=== PATIENT | male | born 1965 | race Caucasian/White ===

== ENCOUNTER → 2018-05-05 | Outpatient (CLI) | payer OTHER ==
--- NOTE | 2018-05-05 22:43 | MR ---
EXAMINATION TYPE: MR shoulder LT wo con DATE OF EXAM: 05/05/2018 COMPARISON: Left shoulder x-ray March 18, 2018 HISTORY: Lt shoulder pain, and chronic pain per order. Injury 2 years ago with pain and difficulty ra ising overhead per patient. TECHNIQUE: Multiplanar, multisequence imaging of the left shoulder is performed without contrast. FINDINGS: Examination is suboptimal due to patient claustrophobia and pain with repeated motion despi te technologist morning patient to hold still. Rotator Cuff: Some increased signal seen in the distal supraspinatus and infraspinatus tendons. In ad dition there is bursal side fluid involving supraspinatus tendon seen best paracoronal image 11 and p arasagittal image 4 with some tearing of the outer supraspinatus fibers anteriorly. Rotator cuff musc le bulk is preserved. Subscapularis tendon is intact. Focal calcification noted near this level on pl ain films less well seen on MRI likely present at articular surface paracoronal image 12. Acromioclavicular Joint: Moderate capsular hypertrophy with mild to moderate narrowing and mild spurr ing is identified. Underlying fat plane is effaced. Distal acromion morphology is unremarkable. Glenohumeral Joint: Small to moderate glenohumeral joint effusion with mild narrowing. No significant spurring. Labrum: The superior labrum is presumed torn with increased degenerative signal paraCoronal image 11. Biceps Tendon: The long head of biceps is in normal location within bicipital groove. Intracapsular p ortion less well-seen but felt intact. Bone marrow signal: No focal abnormal marrow signal is appreciated. Other: No additional significant abnormality is appreciated. IMPRESSION: 1. There is calcific tendinosis distal supraspinatus and infraspinatus tendons with tiny bursal tear of the supraspinatus tendon noted. 2. There is moderate AC joint arthropathy with suggestion of underlying impingement, correlate clinic ally.
== END ==
LOC: RADMRIMAIN 19:41
PROVIDERS: ATTEND Nurse Practitioner Family
DX: M75.82 Other shoulder lesions, left shoulder (principal); M12.812 Other specific arthropathies, not elsewhere classified, left shoulder

== ENCOUNTER 2018-12-10 13:30 | Emergency (ER) | payer OTHER ==
[2018-12-10 13:53] VITALS: RESP 18; TEMP 98.5
[2018-12-10] MEDS ORDERED: NITROGLYCERIN OINT 1 INCH/GM PACKET TOPICAL STA (13:59)
[2018-12-10] MEDS ORDERED: ASPIRIN 81 MG PO STA (13:59)
--- NOTE | 2018-12-10 14:16 | ED ---
General Adult HPI - General Chief complaint: Chest Pain Stated complaint: Chest/arm pain sob Time Seen by Provider: 12/10/18 13:50 Source: patient, RN notes reviewed Mode of arrival: EMS Limitations: no limitations - History of Present Illness Initial comments: This a 53-year-old male who presents emergency Department complaining of chest pain starting about an hour and half prior to arrival. Patient states pain radiated down the left arm. Patient states he also was short of breath. Patient denies any diaphoretic episodes. Patient denies any nausea. Patient states he is a smoker he denies diabetes high blood pressure high cholesterol. Patient also states he has a strong family history of heart disease. Patient states after he got in the ambulance he was given 2 nitroglycerin and he felt much better but he still has a 2 out of 10 pain. Patient did not take any aspirin because she thought taken Tylenol was the same. And he did take a couple Tylenol. Patient denies any recent fever chills. Patient denies being lightheaded or dizzy. Patient denies headache patient denies numbness weakness. Patient denies any abdominal pain patient denies nausea vomiting diarrhea. - Related Data Home Medications Medication Instructions Recorded Confirmed Acetaminophen [Tylenol 8 Hour] 2,600 mg PO ONCE PRN 12/10/18 12/10/18 Aspirin/Acetaminophen/Caffeine 4 tab PO Q6H PRN 12/10/18 12/10/18 [Excedrin Migraine Caplet] Allergies Allergy/AdvReac Type Severity Reaction Status Date / Time No Known Allergies Allergy Verified 12/10/18 14:03 Review of Systems ROS Statement: Those systems with pertinent positive or pertinent negative responses have been documented in the HPI. ROS Other: All systems not noted in ROS Statement are negative. Past Medical History Past Medical History: Asthma, Seizure Disorder History of Any Multi-Drug Resistant Organisms: None Reported Past Surgical History: Orthopedic Surgery Additional Past Surgical History / Comment(s): jaw Past Psychological History: No Psychological Hx Reported Smoking Status: Current every day smoker Past Alcohol Use History: None Reported Past Drug Use History: Marijuana General Exam - General Exam Comments Initial Comments: GENERAL: Patient is well-developed and well-nourished. Patient is nontoxic and well- hydrated and is in mild distress. ENT: Neck is soft and supple. No significant lymphadenopathy is noted. Oropharynx is clear. Moist mucous membranes. Neck has full range of motion without eliciting any pain. EYES: The sclera were anicteric and conjunctiva were pink and moist. Extraocular movements were intact and pupils were equal round and reactive to light. Eyelids were unremarkable. PULMONARY: Unlabored respirations. Good breath sounds bilaterally. No audible rales rhonchi or wheezing was noted. CARDIOVASCULAR: There is a regular rate and rhythm without any murmurs gallops or rubs. ABDOMEN: Soft and nontender with normal bowel sounds. No palpable organomegaly was noted. There is no palpable pulsatile mass. SKIN: Skin is clear with no lesions or rashes and otherwise unremarkable. NEUROLOGIC: Patient is alert and oriented x3. Cranial nerves II through XII are grossly intact. Motor and sensory are also intact. Normal speech, volume and content. Symmetrical smile. MUSCULOSKELETAL: Normal extremities with adequate strength and full range of motion. No lower extremity swelling or edema. No calf tenderness. LYMPHATICS: No significant lymphadenopathy is noted PSYCHIATRIC: Normal psychiatric evaluation. Limitations: no limitations Course Vital Signs 12/10/18 12/10/18 13:49 14:35 Temperature 98.5 F Pulse Rate 69 Pulse Rate [ 82 Product Support Specialist ] Respiratory 18 Rate Blood Pressure 130/80 O2 Sat by Pulse 95 Oximetry Medical Decision Making - Medical Decision Making EKG shows normal sinus rhythm at 73 bpm DE interval is 176 QRS is 90 QT interval 398 QTC is 438 per patient's EKG shows no ST segment elevation or depression. Patient's chest x-ray shows no acute abnormality. I went back in to discuss the results with the patient he was still having 2 out of 10 pain. I indicated the patient though initial labs look normal I strongly suggested that he stay I told him that we'll be detrimental potentially if he went home I told him he could even have a massive heart attack and/or if he leaves the hospital he insisted he wanted to go and would sign out AMA - Lab Data Result diagrams: 12/10/18 13:58 12/10/18 13:58 Lab Results 12/10/18 12/10/18 12/10/18 Range/Units 13:58 13:58 13:58 WBC 10.5 (3.8-10.6) k/uL RBC 4.92 (4.30-5.90) m/uL Hgb 14.1 (13.0-17.5) gm/dL Hct 42.6 (39.0-53.0) % MCV 86.6 (80.0-100.0) fL MCH 28.7 (25.0-35.0) pg MCHC 33.1 (31.0-37.0) g/dL RDW 13.4 (11.5-15.5) % Plt Count 229 (150-450) k/uL Neutrophils % 72 % Lymphocytes % 19 % Monocytes % 5 % Eosinophils % 2 % Basophils % 1 % Neutrophils # 7.5 (1.3-7.7) k/uL Lymphocytes # 2.0 (1.0-4.8) k/uL Monocytes # 0.5 (0-1.0) k/uL Eosinophils # 0.2 (0-0.7) k/uL Basophils # 0.1 (0-0.2) k/uL PT 9.7 (9.0-12.0) sec INR 0.9 (<1.2) APTT 25.2 (22.0-30.0) sec Sodium 140 (137-145) mmol/L Potassium 4.0 (3.5-5.1) mmol/L Chloride 106 (98-107) mmol/L Carbon Dioxide 27 (22-30) mmol/L Anion Gap 7 mmol/L BUN 14 (9-20) mg/dL Creatinine 0.92 (0.66-1.25) mg/dL Est GFR (CKD-EPI)AfAm >90 (>60 ml/min/1.73 sqM) Est GFR (CKD-EPI)NonAf >90 (>60 ml/min/1.73 sqM) Glucose 97 (74-99) mg/dL Calcium 8.9 (8.4-10.2) mg/dL Magnesium 1.9 (1.6-2.3) mg/dL Total Bilirubin 0.2 (0.2-1.3) mg/dL AST 18 (17-59) U/L ALT 22 (21-72) U/L Alkaline Phosphatase 61 (38-126) U/L Troponin I (0.000-0.034) ng/mL Total Protein 7.2 (6.3-8.2) g/dL Albumin 4.3 (3.5-5.0) g/dL 12/10/18 Range/Units 13:58 WBC (3.8-10.6) k/uL RBC (4.30-5.90) m/uL Hgb (13.0-17.5) gm/dL Hct (39.0-53.0) % MCV (80.0-100.0) fL MCH (25.0-35.0) pg MCHC (31.0-37.0) g/dL RDW (11.5-15.5) % Plt Count (150-450) k/uL Neutrophils % % Lymphocytes % % Monocytes % % Eosinophils % % Basophils % % Neutrophils # (1.3-7.7) k/uL Lymphocytes # (1.0-4.8) k/uL Monocytes # (0-1.0) k/uL Eosinophils # (0-0.7) k/uL Basophils # (0-0.2) k/uL PT (9.0-12.0) sec INR (<1.2) APTT (22.0-30.0) sec Sodium (137-145) mmol/L Potassium (3.5-5.1) mmol/L Chloride (98-107) mmol/L Carbon Dioxide (22-30) mmol/L Anion Gap mmol/L BUN (9-20) mg/dL Creatinine (0.66-1.25) mg/dL Est GFR (CKD-EPI)AfAm (>60 ml/min/1.73 sqM) Est GFR (CKD-EPI)NonAf (>60 ml/min/1.73 sqM) Glucose (74-99) mg/dL Calcium (8.4-10.2) mg/dL Magnesium (1.6-2.3) mg/dL Total Bilirubin (0.2-1.3) mg/dL AST (17-59) U/L ALT (21-72) U/L Alkaline Phosphatase (38-126) U/L Troponin I <0.012 (0.000-0.034) ng/mL Total Protein (6.3-8.2) g/dL Albumin (3.5-5.0) g/dL Disposition Clinical Impression: Unstable angina pectoris Disposition: Left Against Medical Advice Referrals: Ara Matias MD [Primary Care Provider] - 1-2 days Time of Disposition: 15:12
[2018-12-10 14:18] LABS: Basophils # (A) 0.1 k/uL (0-0.2); Basophils % (A) 1 %; Eosinophils # (A) 0.2 k/uL (0-0.7); Eosinophils % (A) 2 %; HCT 42.6 % (39.0-53.0); HGB 14.1 gm/dL (13.0-17.5); Lymphocytes % (A) 19 %; MCH 28.7 pg (25.0-35.0); MCHC 33.1 g/dL (31.0-37.0); MCV 86.6 fL (80.0-100.0); Mean Platelet Volume 6.1; Monocytes # (A) 0.5 k/uL (0-1.0); Monocytes % (A) 5 %; Neutrophils # (A) 7.5 k/uL (1.3-7.7); Neutrophils % (A) 72 %; Platelet Count 229 k/uL (150-450); RBC 4.92 m/uL (4.30-5.90); RDW 13.4 % (11.5-15.5); WBC 10.5 k/uL (3.8-10.6)
[2018-12-10 14:29] LABS: ALT 22 U/L (21-72); AST 18 U/L (17-59); African American GFR (CKD) >90 (>60 ml/min/1.73 sqM); Albumin 4.3 g/dL (3.5-5.0); Alkaline Phosphatase 61 U/L (38-126); Anion Gap 7 mmol/L; Blood Urea Nitrogen 14 mg/dL (9-20); Calcium 8.9 mg/dL (8.4-10.2); Carbon Dioxide 27 mmol/L (22-30); Chloride 106 mmol/L (98-107); Glucose 97 mg/dL (74-99); Magnesium 1.9 mg/dL (1.6-2.3); Sodium 140 mmol/L (137-145); Total Bilirubin 0.2 mg/dL (0.2-1.3); Total Protein 7.2 g/dL (6.3-8.2)
[2018-12-10 14:32] LABS: INR 0.9 (<1.2); Partial Thromboplastin Time 25.2 sec (22.0-30.0); Prothrombin Time 9.7 sec (9.0-12.0)
--- NOTE | 2018-12-10 14:42 | XR ---
EXAMINATION TYPE: XR chest 2V DATE OF EXAM: 12/10/2018 COMPARISON: Chest x-ray April 06, 2015. HISTORY: Chest pain into left arm and shortness of breath. TECHNIQUE: Frontal and lateral views of the chest are obtained. FINDINGS: Overlying EKG leads are seen. There is chronic parenchymal change right lung base without suspicious new focal air space opacity, pleural effusion, or pneumothorax seen. The cardiac silhouet te size is upper limits of normal with atherosclerotic change in aortic knob. The osseous structure s are intact. IMPRESSION: No new acute pulmonary process.
[2018-12-10 15:39] VITALS: BP 136/76; PULSE 78
== END 2018-12-10 15:36 | disposition left against medical advice (07) ==
LOC: EC 13:30
DX: I20.0 Unstable angina (principal); F17.200 Nicotine dependence, unspecified, uncomplicated; Z82.49 Family history of ischemic heart disease and other diseases of the circulatory system; Z53.20 Procedure and treatment not carried out because of patient's decision for unspecified reasons
CPT/HCPCS: 36415; 71046; 80053; 83735; 84484; 85025; 85610; 85730; 93005; 99285

== ENCOUNTER → 2018-12-21 | Outpatient (CLI) | payer OTHER ==
--- NOTE | 2018-12-21 15:26 | XR ---
EXAMINATION TYPE: XR hand complete RT DATE OF EXAM: 12/21/2018 COMPARISON: NONE HISTORY: 53 year-old male right hand pain, contusion and swelling TECHNIQUE: 3 views FINDINGS: Scattered osteoarthritic spurring, greatest at the first MCP joint. Some dorsal sided soft tissue swe lling at the level of the knuckles. There is some curvilinear lucency at the level of the second meta tarsal head which appears to represent projection artifact when correlating with the oblique view. Ti ny ossicle adjacent to the ulnar styloid process. IMPRESSION: Curvilinear lucency at the level of the second metatarsal head suspected to represent projection natalia fact when correlating with the oblique view. However, if there is point tenderness in this location, subtle nondisplaced fracture is difficult to exclude. Clinical correlation recommended. Osteoporotic change particularly at the first MCP joint.
== END | disposition home or self-care (01) ==
LOC: RADXRMAIN 14:44
PROVIDERS: ATTEND Emergency Medicine
DX: M81.0 Age-related osteoporosis without current pathological fracture (principal)

== ENCOUNTER 2019-06-05 18:41 | Emergency (ER) | payer OTHER ==
[2019-06-05 18:49] VITALS: BP 140/90; PULSE 95; RESP 18; TEMP 98.4
[2019-06-05] MEDS ORDERED: MORPHINE SULFATE 4 MG/ML SYRINGE IM STA (19:18)
--- NOTE | 2019-06-05 19:35 | ED ---
General Adult HPI - General Chief complaint: Extremity Problem,Nontraumatic Stated complaint: Dislocated shoulder Time Seen by Provider: 06/05/19 18:57 Source: patient, RN notes reviewed, old records reviewed Mode of arrival: ambulatory Limitations: no limitations - History of Present Illness Initial comments: 53-year-old male patient presents to ED for chief complaint of chronic right shoulder pain. Patient reports that approximately 1.5 months ago suffered a shoulder dislocation. Since then he states he has had chronic pain in the posterior aspect of his right shoulder. States that the pain is worse with range of motion. Denies any other areas of pain. States that he was supposed to have a MRI scheduled has been following with primary care provider and orthopedics. However was canceled due to coronavirus. Denies any other complaints. Systemic: Pt denies fatigue, fever/chills, rash. Pt denies weakness, night sweats, weight loss. Neuro: Pt denies headache, visual disturbances, syncope or pre-syncope. HEENT: Pt denies ocular discharge or irritation, otalgia, rhinorrhea, pharyngitis or notable lymphadenopathy. Cardiopulmonary: Pt denies chest pain, SOB, heart palpitations, dyspnea on exertion. Abdominal/GI: Pt denies abdominal pain, n/v/d. : Pt denies dysuria, burning w/ urination, frequency/urgency. Denies new onset urinary or bowel incontinence. Neuro: Pt denies new onset weakness. - Related Data Home Medications Medication Instructions Recorded Confirmed Acetaminophen [Tylenol 8 Hour] 2,600 mg PO ONCE PRN 12/10/18 12/10/18 Aspirin/Acetaminophen/Caffeine 4 tab PO Q6H PRN 12/10/18 12/10/18 [Excedrin Migraine Caplet] Previous Rx's Medication Instructions Recorded Cyclobenzaprine [Flexeril] 1 tab PO TID #15 tablet 06/05/19 Allergies Allergy/AdvReac Type Severity Reaction Status Date / Time No Known Allergies Allergy Verified 06/05/19 18:43 Review of Systems ROS Statement: Those systems with pertinent positive or pertinent negative responses have been documented in the HPI. ROS Other: All systems not noted in ROS Statement are negative. Past Medical History Past Medical History: Asthma, Seizure Disorder History of Any Multi-Drug Resistant Organisms: None Reported Past Surgical History: Orthopedic Surgery Additional Past Surgical History / Comment(s): jaw Past Psychological History: No Psychological Hx Reported Smoking Status: Current every day smoker Past Alcohol Use History: None Reported Past Drug Use History: Marijuana General Exam - General Exam Comments Initial Comments: Constitutional: NAD, AOX3, Pt has pleasant affect. HEENT: NC/AT, trachea midline, neck supple, no lymphadenopathy. Posterior pharynx non erythematous, without exudates. External ears appear normal, without discharge. Mucous membranes moist. Eyes PERRLA, EOM intact. There is no scleral icterus. No pallor noted. Cardiopulmonary: RRR, no murmurs, rubs or gallops, no JVD noted. Lungs CTAB in anterior and posterior reed. No peripheral edema. Abdominal exam: Abdomen soft and non-distended. Abdomen non-tender to palpation in all 4 quadrants. Bowel sounds active in LLQ. No hepatosplenomegaly. No ecchymosis Neuro: CN II-XII grossly intact. No nuchal rigidity. No raccon eyes, no ortiz sign, no hemotympanum. No cervical spinal tenderness. MSK: Right posterior shoulder mildly tender to palpation. Active Range of motion is slightly limited secondary to pain. Empty can test is positive. Neurovascularly intact. Limitations: no limitations Course Vital Signs 06/05/19 18:44 Temperature 98.4 F Pulse Rate 95 Respiratory 18 Rate Blood Pressure 140/90 O2 Sat by Pulse 95 Oximetry Medical Decision Making - Medical Decision Making 53-year-old male patient presents to ED for chief complaint of chronic right shoulder pain. Patient reports that approximately 1.5 months ago suffered a shoulder dislocation. Since then he states he has had chronic pain in the posterior aspect of his right shoulder. States that the pain is worse with range of motion. Denies any other areas of pain. States that he was supposed to have a MRI scheduled has been following with primary care provider and orthopedics. However was canceled due to coronavirus. Denies any other complaints. Patient vital signs stable, afebrile. Physical exam displayed: Right posterior shoulder mildly tender to palpation. Active Range of motion is slightly limited secondary to pain. Empty can test is positive. Neurovascularly intact. Plain film of right shoulder displayed no acute process. Patient will be discharged with follow-up with orthopedic consult primary care provider will return here if condition worsens. Discussed with Dr. Inman. Disposition Clinical Impression: Chronic right shoulder pain Disposition: HOME SELF-CARE Condition: Stable Instructions (If sedation given, give patient instructions): Shoulder Pain (ED) Additional Instructions: Follow-up with primary care provider as previously established orthopedic surgeon tomorrow. Return to ER if condition worsens. Is patient prescribed a controlled substance at d/c from ED?: No Referrals: Ara Matias MD [Primary Care Provider] - 1-2 days
--- NOTE | 2019-06-05 19:48 | XR ---
EXAMINATION TYPE: XR shoulder complete RT DATE OF EXAM: 06/05/2019 COMPARISON: NONE HISTORY: Pain TECHNIQUE: Three views are submitted. FINDINGS: The osseous structures are intact. There is no acute fracture or dislocation. Arthropathy of the AC joint. IMPRESSION: 1. No acute process.
[2019-06-05] MEDS ORDERED: ACET/COD 300 MG/30 MG STARTER PACK 6 TAB BTL PO STA (20:22)
[2019-06-05] MEDS ORDERED: CYCLOBENZAPRINE 10MG STARTER 3 TAB BTL PO STA (20:23)
== END 2019-06-05 20:37 | disposition home or self-care (01) ==
LOC: EC 18:41
DX: M25.511 Pain in right shoulder (principal); G89.29 Other chronic pain; F17.200 Nicotine dependence, unspecified, uncomplicated
CPT/HCPCS: 73030; 99284; 96372; J2270

== ENCOUNTER 2019-12-12 12:57 | Emergency (ER) | payer OTHER ==
[2019-12-12] MEDS ORDERED: KETOROLAC 15 MG/ML 1 ML VIAL IM STA (13:19)
--- NOTE | 2019-12-12 14:11 | XR ---
EXAMINATION TYPE: XR tibia fibula RT DATE OF EXAM: 12/12/2019 CLINICAL HISTORY: Mid shaft injury TECHNIQUE: Two views of the right tibia and fibula are obtained. COMPARISON: None. FINDINGS: There is no acute fracture or dislocation seen in the right tibia or fibula. The knee and ankle joints appear within normal limits. The overlying soft tissue appears unremarkable. Normal osse ous mineralization. IMPRESSION: There is no acute fracture or dislocation seen in the right tibia or fibula.
--- NOTE | 2019-12-12 14:34 | ED ---
Lower Extremity Injury HPI - General Chief Complaint: Extremity Injury, Lower Stated Complaint: R leg Injury Time Seen by Provider: 12/12/19 13:10 Source: patient Mode of arrival: ambulatory Limitations: no limitations - History of Present Illness Initial Comments: Patient is a 54-year-old male presenting to emergency Department the chief complaint of leg pain. Patient states he was getting out of his van and injured his right deshpande along the running board of the vehicle. Patient reports there was some bleeding which is since resolved. Patient states his tetanus is up-to-date. Denies any numbness or tingling. States most of his pain is located to the right deshpande. He reports the pain is sharp and exacerbated with palpation or weightbearing. Denies any alleviated factors. - Related Data Allergies Allergy/AdvReac Type Severity Reaction Status Date / Time No Known Allergies Allergy Verified 12/12/19 14:26 Review of Systems ROS Statement: Those systems with pertinent positive or pertinent negative responses have been documented in the HPI. ROS Other: All systems not noted in ROS Statement are negative. Past Medical History Past Medical History: Asthma, Seizure Disorder History of Any Multi-Drug Resistant Organisms: None Reported Past Surgical History: Orthopedic Surgery Additional Past Surgical History / Comment(s): jaw Past Psychological History: No Psychological Hx Reported Past Alcohol Use History: None Reported Past Drug Use History: Marijuana General Exam Limitations: no limitations General appearance: alert, in no apparent distress Head exam: Present: atraumatic, normocephalic, normal inspection Eye exam: Present: normal appearance, PERRL, EOMI Pupils: Present: normal accommodation ENT exam: Present: normal exam, normal oropharynx, mucous membranes moist, TM's normal bilaterally, normal external ear exam Neck exam: Present: normal inspection, full ROM. Absent: tenderness Respiratory exam: Present: normal lung sounds bilaterally. Absent: respiratory distress, wheezes, rales Cardiovascular Exam: Present: regular rate, normal rhythm, normal heart sounds Extremities exam: Present: full ROM, tenderness (Tenderness at the site of abrasion area and small hematoma at the injured site.), normal capillary refill, other (Compartment are soft.). Absent: normal inspection (Small abrasion on the right deshpande. No active bleeding at this time.), pedal edema, joint swelling, calf tenderness Back exam: Present: normal inspection, full ROM. Absent: tenderness, CVA tenderness (R), CVA tenderness (L) Neurological exam: Present: alert, oriented X3 Psychiatric exam: Present: normal affect, normal mood Skin exam: Present: warm, dry, intact, normal color Course Vital Signs 12/12/19 13:04 Temperature 98.0 F Pulse Rate 91 Respiratory 18 Rate Blood Pressure 159/94 O2 Sat by Pulse 97 Oximetry Medical Decision Making - Medical Decision Making patient is a 54-year-old male presenting to the emergency Department with a chief complaint of right leg pain. On physical examination, patient has a with a small abrasion and underlying hematoma. X-ray reveals no acute fracture or dislocations of the tibia or fibula. Patient was given Toradol for symptomatic control. Ice compress was also applied. Patient was advised to rest, ice, compress and elevate. Compartment is soft. Patient is neurovascularly intact. Return parameters were thoroughly discussed the patient is understanding and agreeable. Case discussed physician. Disposition Clinical Impression: Injury of right deshpande, Abrasion Disposition: HOME SELF-CARE Condition: Stable Instructions (If sedation given, give patient instructions): Skin Tear (ED) Additional Instructions: Rest, ice, compress and elevate. Alternate between Tylenol and Motrin for pain control. Return to emergency department if symptoms worsen. Is patient prescribed a controlled substance at d/c from ED?: No Referrals: Ara Matias MD [Primary Care Provider] - 1-2 days Time of Disposition: 14:34
[2019-12-12 15:10] VITALS: BP 151/78; PULSE 89; RESP 16; TEMP 97.8
== END 2019-12-12 15:09 | disposition home or self-care (01) ==
LOC: EC 12:57
DX: S80.11XA Contusion of right lower leg, initial encounter (principal); V58.4XXA Person boarding or alighting a pick-up truck or van injured in noncollision transport accident, initial encounter; Y92.410 Unspecified street and highway as the place of occurrence of the external cause
CPT/HCPCS: 73590; 99283; 96372; J1885

== ENCOUNTER 2022-09-27 11:59 | Emergency (ER) | payer OTHER ==
[2022-09-27] MEDS ORDERED: IPRATROPIUM 0.5 MG/2.5 ML NEBU INHALATION STA (12:34)
[2022-09-27] MEDS ORDERED: ALBUTEROL NEBULIZED 2.5 MG/3 ML INHALATION STA (12:34)
[2022-09-27] MEDS ORDERED: methylPREDNISolone SOD SUCCI 125 MG/2 ML VIAL IV STA (12:34)
--- NOTE | 2022-09-27 12:37 | ED ---
General Adult HPI - General Chief complaint: Shortness of Breath Stated complaint: JUSTINA Time Seen by Provider: 09/27/22 12:20 Source: patient, RN notes reviewed, old records reviewed Mode of arrival: ambulatory Limitations: no limitations - History of Present Illness Initial comments: 56-year-old male presenting with 3 days of cough and dyspnea. His symptoms began after using a pot washer with a cleaning detergent additive. He believes this may have aggravated his breathing. He is a current smoker, smoking approximately one pack of cigarettes daily. He denies fever. Denies central chest pain. Denies lower extremity pain or swelling. No fever. - Related Data Home Medications Medication Instructions Recorded Confirmed Levothyroxine(Unknown Dose) 1 tab PO DAILY 12/12/19 12/12/19 Previous Rx's Medication Instructions Recorded Albuterol Inhaler [Ventolin Hfa 1 - 2 puff INHALATION Q4HR PRN #1 09/27/22 Inhaler] each Amoxic-Pot Clav 875-125Mg 1 tab PO Q12HR 10 Days #20 tab 09/27/22 [Augmentin 875-125] Azithromycin [Zithromax Z Pack] 1 tab PO DIRECTED #6 tab 09/27/22 predniSONE 50 mg PO DAILY #5 tab 09/27/22 Allergies Allergy/AdvReac Type Severity Reaction Status Date / Time No Known Allergies Allergy Verified 09/27/22 12:04 Review of Systems ROS Statement: Those systems with pertinent positive or pertinent negative responses have been documented in the HPI. ROS Other: All systems not noted in ROS Statement are negative. Past Medical History Past Medical History: Asthma, Seizure Disorder Additional Past Medical History / Comment(s): bronchitis History of Any Multi-Drug Resistant Organisms: None Reported Past Surgical History: Orthopedic Surgery Additional Past Surgical History / Comment(s): jaw Past Psychological History: No Psychological Hx Reported Smoking Status: Current every day smoker Past Alcohol Use History: None Reported Past Drug Use History: Marijuana General Exam Limitations: no limitations General appearance: alert, in no apparent distress Head exam: Present: atraumatic, normocephalic Eye exam: Present: normal appearance, PERRL Respiratory exam: Present: respiratory distress, wheezes, decreased breath sounds Cardiovascular Exam: Present: regular rate, normal rhythm GI/Abdominal exam: Present: soft. Absent: distended, tenderness Extremities exam: Present: normal inspection, normal capillary refill. Absent: calf tenderness Neurological exam: Present: alert, oriented X3, CN II-XII intact. Absent: motor sensory deficit Psychiatric exam: Present: normal affect, normal mood Skin exam: Present: warm, dry, intact Course Vital Signs 09/27/22 09/27/22 09/27/22 12:01 13:00 13:10 Temperature 98.2 F Pulse Rate 71 66 66 Respiratory 22 Rate Blood Pressure 128/81 118/73 O2 Sat by Pulse 94 L 98 Oximetry 09/27/22 09/27/22 09/27/22 13:20 13:30 13:41 Temperature Pulse Rate 60 60 64 Respiratory Rate Blood Pressure O2 Sat by Pulse Oximetry 09/27/22 14:00 Temperature Pulse Rate 85 Respiratory Rate Blood Pressure 125/83 O2 Sat by Pulse 92 L Oximetry - Reevaluation(s) Reevaluation #1: 09/27/22 14:34 Patient reevaluated, resting comfortable, states he feels significantly better and is eager for discharge. Medical Decision Making - Medical Decision Making Was pt. sent in by a medical professional or institution (, PA, PROFESSIONAL NURSE, urgent care, hospital, or usp...) When possible be specific @ -No Did you speak to anyone other than the patient for history (EMS, parent, family, police, friend...)? What history was obtained from this source @ -No Did you review nursing and triage notes (agree or disagree)? Why? @ -I reviewed and agree with nursing and triage notes Were old charts reviewed (outside hosp., previous admission, EMS record, old EKG, old radiological studies, urgent care reports/EKG's, usp records)? Report findings @ -No old charts were reviewed Differential Diagnosis (chest pain, altered mental status, abdominal pain women, abdominal pain men, vaginal bleeding, weakness, fever, dyspnea, syncope, headache, dizziness, GI bleed, back pain, seizure, CVA, palpatations, mental health, musculoskeletal)? @ -Differential Dyspnea: Coronary syndrome, arrhythmia, tamponade, asthma, COPD, pulmonary embolism, pneumonia, pneumothorax, pulmonary effusion, anaphylaxis, diabetic ketoacidosis, flailed chest, pulmonary contusion, diaphragmatic rupture, anemia, neuromuscular, this is not meant to be an all-inclusive list. EKG interpreted by me (3pts min.). @ -EKG: Sinus rhythm rate of 68, IL interval 179, QRS duration 101, QTC [address] segment elevation. X-rays interpreted by me (1pt min.). @ -[Chest x-ray showing hyperinflation, no pneumothorax, developing infiltrate right lower lobe CT interpreted by me (1pt min.). @ -None done U/S interpreted by me (1pt. min.). @ -None done What testing was considered but not performed or refused? (CT, X-rays, U/S, labs)? Why? @ -None What meds were considered but not given or refused? Why? @ -None Did you discuss the management of the patient with other professionals (professionals i.e. , PA, PROFESSIONAL NURSE, lab, RT, psych nurse, medical social worker, learning center coordinator, teacher, certified juvenile probation officer, case maker)? Give summary @ -No Was smoking cessation discussed for >3mins.? @ -No Was critical care preformed (if so, how long)? @ -No Were there social determinants of health that impacted care today? How? (Homelessness, low income, unemployed, alcoholism, drug addiction, transportation, low edu. Level, literacy, decrease access to med. care, intermediate, rehab)? @ -No Was there de-escalation of care discussed even if they declined (Discuss DNR or withdrawal of care, Hospice)? DNR status @ -No What co-morbidities impacted this encounter? (DM, HTN, Smoking, COPD, CAD, Can cer, CVA, ARF, Chemo, Hep., AIDS, mental health diagnosis, sleep apnea, morbid obesity)? @ -[COPD Was patient admitted / discharged? Hospital course, mention meds given and route, prescriptions, significant lab abnormalities, going to OR and other pertinent info. @ -[26-year-old male with cough and dyspnea. Patient has a long smoking histo ry. He has wheezing bilaterally with the Mr. entry. No associated central chest pain, no fever. X-ray shows developing infiltrate. Patient is covered with antibiotics, given steroids, albuterol Atrovent. He is reevaluated and states he feels significant better and wants to go home. We'll trial steroids, antibiotics and albuterol. He should return with worsening or changing symptoms. Undiagnosed new problem with uncertain prognosis? @ -No Drug Therapy requiring intensive monitoring for toxicity (Heparin, Nitro, Insulin, Cardizem)? @ -No Were any procedures done? @ -No Diagnosis/symptom? @ COPD, pneumonia Acute, or Chronic, or Acute on Chronic? @ -Acute Uncomplicated (without systemic symptoms) or Complicated (systemic symptoms)? @ Complicated Side effects of treatment? @ -No Exacerbation, Progression, or Severe Exacerbation? @ -No Poses a threat to life or bodily function? How? (Chest pain, [place], [place], pneumonia, PE, COPD, DKA, ARF, appy, cholecystitis, CVA, Diverticulitis, Homicidal, Suicidal, threat to staff... and all critical care pts) @ -Yes, COPD - Lab Data Result diagrams: 09/27/22 12:39 09/27/22 12:39 Lab Results 09/27/22 09/27/22 09/27/22 Range/Units 12:39 12:39 12:39 WBC 7.0 (3.8-10.6) k/uL RBC 4.97 (4.30-5.90) m/uL Hgb 14.5 (13.0-17.5) gm/dL Hct 42.0 (39.0-53.0) % MCV 84.4 (80.0-100.0) fL MCH 29.1 (25.0-35.0) pg MCHC 34.4 (31.0-37.0) g/dL RDW 13.4 (11.5-15.5) % Plt Count 205 (150-450) k/uL MPV 7.7 Neutrophils % 60 % Lymphocytes % 27 % Monocytes % 7 % Eosinophils % 4 % Basophils % 1 % Neutrophils # 4.2 (1.3-7.7) k/uL Lymphocytes # 1.9 (1.0-4.8) k/uL Monocytes # 0.5 (0-1.0) k/uL Eosinophils # 0.3 (0-0.7) k/uL Basophils # 0.1 (0-0.2) k/uL PT 9.5 (9.0-12.0) sec INR 0.9 (<1.2) APTT 24.8 (22.0-30.0) sec Sodium 137 (137-145) mmol/L Potassium 3.7 (3.5-5.1) mmol/L Chloride 106 (98-107) mmol/L Carbon Dioxide 25 (22-30) mmol/L Anion Gap 6 mmol/L BUN 9 (9-20) mg/dL Creatinine 0.99 (0.66-1.25) mg/dL Est GFR (CKD-EPI)AfAm >90 (>60 ml/min/1.73 sqM) Est GFR (CKD-EPI)NonAf 86 (>60 ml/min/1.73 sqM) Glucose 88 (74-99) mg/dL Plasma Lactic Acid Ricco (0.7-2.0) mmol/L Calcium 8.5 (8.4-10.2) mg/dL Magnesium 1.7 (1.6-2.3) mg/dL Total Bilirubin 0.3 (0.2-1.3) mg/dL AST 26 (17-59) U/L ALT 18 (4-49) U/L Alkaline Phosphatase 63 (38-126) U/L Troponin I (0.000-0.034) ng/mL Total Protein 6.5 (6.3-8.2) g/dL Albumin 3.8 (3.5-5.0) g/dL 09/27/22 09/27/22 Range/Units 12:39 12:39 WBC (3.8-10.6) k/uL RBC (4.30-5.90) m/uL Hgb (13.0-17.5) gm/dL Hct (39.0-53.0) % MCV (80.0-100.0) fL MCH (25.0-35.0) pg MCHC (31.0-37.0) g/dL RDW (11.5-15.5) % Plt Count (150-450) k/uL MPV Neutrophils % % Lymphocytes % % Monocytes % % Eosinophils % % Basophils % % Neutrophils # (1.3-7.7) k/uL Lymphocytes # (1.0-4.8) k/uL Monocytes # (0-1.0) k/uL Eosinophils # (0-0.7) k/uL Basophils # (0-0.2) k/uL PT (9.0-12.0) sec INR (<1.2) APTT (22.0-30.0) sec Sodium (137-145) mmol/L Potassium (3.5-5.1) mmol/L Chloride (98-107) mmol/L Carbon Dioxide (22-30) mmol/L Anion Gap mmol/L BUN (9-20) mg/dL Creatinine (0.66-1.25) mg/dL Est GFR (CKD-EPI)AfAm (>60 ml/min/1.73 sqM) Est GFR (CKD-EPI)NonAf (>60 ml/min/1.73 sqM) Glucose (74-99) mg/dL Plasma Lactic Acid Ricco 1.2 (0.7-2.0) mmol/L Calcium (8.4-10.2) mg/dL Magnesium (1.6-2.3) mg/dL Total Bilirubin (0.2-1.3) mg/dL AST (17-59) U/L ALT (4-49) U/L Alkaline Phosphatase (38-126) U/L Troponin I <0.012 (0.000-0.034) ng/mL Total Protein (6.3-8.2) g/dL Albumin (3.5-5.0) g/dL Disposition Clinical Impression: Acute exacerbation of chronic obstructive pulmonary disease, Community acquired pneumonia Disposition: HOME SELF-CARE Condition: Fair Instructions (If sedation given, give patient instructions): COPD (Chronic Obstructive Pulmonary Disease) (ED), Bacterial Pneumonia (ED) Prescriptions: Amoxic-Pot Clav 875-125Mg [Augmentin 875-125] 1 tab PO Q12HR 10 Days #20 tab predniSONE 50 mg PO DAILY #5 tab Albuterol Inhaler [Ventolin Hfa Inhaler] 1 - 2 puff INHALATION Q4HR PRN #1 each PRN Reason: Shortness Of Breath Azithromycin [Zithromax Z Pack] 1 tab PO DIRECTED #6 tab Is patient prescribed a controlled substance at d/c from ED?: No Referrals: None,Stated [Primary Care Provider] - 1-2 days Heike Odell MD [REFERRING] - 1-2 days Time of Disposition: 14:36
[2022-09-27 13:10] LABS: Basophils # (A) 0.1 k/uL (0-0.2); Basophils % (A) 1 %; Eosinophils # (A) 0.3 k/uL (0-0.7); Eosinophils % (A) 4 %; HGB 14.5 gm/dL (13.0-17.5); Lymphocytes # (A) 1.9 k/uL (1.0-4.8); Lymphocytes % (A) 27 %; MCH 29.1 pg (25.0-35.0); MCHC 34.4 g/dL (31.0-37.0); MCV 84.4 fL (80.0-100.0); Mean Platelet Volume 7.7; Monocytes # (A) 0.5 k/uL (0-1.0); Monocytes % (A) 7 %; Neutrophils # (A) 4.2 k/uL (1.3-7.7); Neutrophils % (A) 60 %; Platelet Count 205 k/uL (150-450); RBC 4.97 m/uL (4.30-5.90); RDW 13.4 % (11.5-15.5)
[2022-09-27 13:21] LABS: INR 0.9 (<1.2); Partial Thromboplastin Time 24.8 sec (22.0-30.0); Prothrombin Time 9.5 sec (9.0-12.0)
[2022-09-27 13:23] LABS: ALT 18 U/L (4-49); AST 26 U/L (17-59); African American GFR (CKD) >90 (>60 ml/min/1.73 sqM); Albumin 3.8 g/dL (3.5-5.0); Alkaline Phosphatase 63 U/L (38-126); Anion Gap 6 mmol/L; Blood Urea Nitrogen 9 mg/dL (9-20); Calcium 8.5 mg/dL (8.4-10.2); Carbon Dioxide 25 mmol/L (22-30); Chloride 106 mmol/L (98-107); Glucose 88 mg/dL (74-99); Magnesium 1.7 mg/dL (1.6-2.3); Non-African American GFR(CKD) 86 (>60 ml/min/1.73 sqM); Potassium 3.7 mmol/L (3.5-5.1); Sodium 137 mmol/L (137-145); Total Bilirubin 0.3 mg/dL (0.2-1.3); Total Protein 6.5 g/dL (6.3-8.2)
[2022-09-27 14:11] VITALS: PULSE 85
[2022-09-27] MEDS ORDERED: AZITHROMYCIN 500 MG in SODIUM CHLORIDE 0.9% 250 ML IVPB STA (14:32)
--- NOTE | 2022-09-27 14:51 | XR ---
EXAMINATION TYPE: XR chest 2V DATE OF EXAM: 09/27/2022 COMPARISON: 12/10/2018 INDICATION: Difficulty breathing, short of breath TECHNIQUE: Frontal and lateral views of the chest are obtained. FINDINGS: The heart size is normal. The pulmonary vasculature is normal. The lungs are clear. IMPRESSION: 1. No acute pulmonary process.
[2022-09-27 15:46] VITALS: BP 139/90; RESP 18; TEMP 97.8
== END 2022-09-27 15:55 | disposition home or self-care (01) ==
LOC: EC 11:59
DX: J44.1 Chronic obstructive pulmonary disease with (acute) exacerbation (principal); J18.9 Pneumonia, unspecified organism; F17.210 Nicotine dependence, cigarettes, uncomplicated; F12.90 Cannabis use, unspecified, uncomplicated
CPT/HCPCS: 99285; 96365; 96375; 36415; 94640 ×2; 93005; 80053; 83605; 83735; 84484; 85025; 85610; 85730; 71046; J2930; J0456